=== PATIENT | female | born 1980 | race Caucasian/White ===

== ENCOUNTER → 2019-08-23 07:57 | Outpatient (CLI) | payer BC | END | disposition home or self-care (01) | LOC: D.RAD 07:57 → D.MRI 09:00 | PROVIDERS: ATTEND Orthopaedic Surgery | DX: S49.92XA Unspecified injury of left shoulder and upper arm, initial encounter (principal); X58.XXXA Exposure to other specified factors, initial encounter ==

== ENCOUNTER 2019-09-28 06:00 | Day surgery (SDC) | payer BC ==
[2019-09-26 09:05] LABS: HEMATOCRIT 41.8 % (36.0-48.0); HEMOGLOBIN 13.9 g/dL (12-16); MCH 29.6 pg (26.0-34.0); MCHC 33.3 g/dL (31.0-37.0); MCV 88.9 fL (80.0-100.0); MEAN PLATELET VOLUME 8.9 fL (7.4-10.4); RBC 4.7 10x6/uL (4.00-5.40); RDW 12.5 % (11.5-14.5); WBC 6.6 10x3/uL (4.8-10.8)
[~2019-09-28] VITALS: Ht 162.6 cm; Wt 83.9 kg
[2019-09-28 06:42] VITALS: BP 114/65; Ht 162.6 cm; Wt 83.9 kg
[2019-09-28 06:50] LABS: HCG URINE NEGATIVE (NEGATIVE)
[2019-09-28] MEDS ORDERED: HYDROCODON-ACE1 EA10 PO (08:27)
--- NOTE | 2019-09-28 10:21 | NUR ---
1000 IV D/C'D WITH CANNULA INTACT, PRESSURE HELD AND DRSG PLACED. DISCHARGE INSTRUCTION GIVEN AND PT VERBALIZED AN UNDERSTANDING. OPERATIVE ARM WITH CDI DRSG AND SLING ADJUSTED
--- NOTE | 2019-10-02 08:46 | OP ---
PATIENT NAME: SELVIN HERNÁNDEZ MEDICAL RECORD: [id number] :78 [facility] AD[facility]ION DATE: SURGEON: KENDELL CAMPOS MD DATE OF OPERATION: 09/28/2019 PREOPERATIVE DIAGNOSES: 1. Impingement syndrome of the left shoulder. 2. Superior labrum anterior and posterior lesion of the left shoulder. POSTOPERATIVE DIAGNOSIS: Impingement syndrome of the left shoulder. PROCEDURES: 1. Arthroscopic distal clavicle excision done through separate incision - 1 cm. 2. Arthroscopic subacromial decompression with acromioplasty and bursectomy. SURGEON: Kendell Campos MD ANESTHESIA: General. INTRAOPERATIVE COMPLICATIONS: None. SUMMARY OF PATHOLOGIC FINDINGS: The patient did not have a SLAP lesion. The patient did have moderate biceps tendonitis. I did not feel like the tendon needed to be transposed or resected because of the amount of impingement that was found. The patient did have a downward sloping acromion with excoriation of the coracoacromial ligament as well as some attritional changes of the rotator cuff and grade IV chondromalacia of the acromioclavicular joint. OPERATIVE SUMMARY IN DETAIL: After obtaining the appropriate preoperative orthopedic surgery consent as well as anesthetic consultation, evaluation and clearance, the patient was brought to the operating room and placed on the operating table in supine position. After adequate general laryngeal mask airway was administered, the patient was placed in a right lateral decubitus position. All pressure points were well padded to include down leg peroneal pad as well as axillary roll. The patient was held firmly to the operating table using the vacuum pack suction system. Left upper extremity and shoulder were then prepped and draped in routine sterile fashion. The arm was held in the Arthrex traction boom at 30 degrees of forward flexion, 30 degrees of abduction, 10 pounds of traction laterally. Arthroscopy was established in the glenohumeral joint from posterior portal. Anterior portal was established in the anterior safe interval. Diagnostic arthroscopy did show the above findings. Rotator cuff was intact. There was no chondromalacia in the glenohumeral joint region. There was no evidence of labral detachment. Having completed this, attention was turned to the subacromial space. While in the subacromial space, accessory lateral portal was created through which the surface tissue ablation system was utilized to denude the undersurface of the acromion of all soft tissue elements and release the coracoacromial ligament. A 5-0 barrel bur was then used to perform acromioplasty at the level of acromioclavicular joint and then attention was turned to the distal clavicle. Distal clavicle was excised through a separate arthroscopic portal for 1 cm. Having completed this, the residual bursa was taken down anterior and posterior as well as superiorly and laterally. Arthroscopy portal was then closed in routine interrupted fashion using 4-0 Prolene. Sterile dressings were applied. The patient was awakened and taken to recovery room in stable condition. All final needle and sponge counts were correct. OPERATIVE REPORT [id number] SELVIN HERNÁNDEZ ESDRAS TRANSINT:[id number] Voice Confirmation ID: [id number] DOCUMENT ID: [id number] ANDRES DOMINGUEZ, KENDELL HARDY at 0846 CC: [id number] DICTATION DATE: 09/28/19 0837 [employer]EM[employer]ER: 09/28/19 1116 [facility] 09/28/19 [id number] [place] [address]
== END 2019-09-28 10:15 | disposition home or self-care (01) ==
LOC: D.OPS 06:00
PROVIDERS: Anesthesiology; ATTEND Orthopaedic Surgery
DX: M75.42 Impingement syndrome of left shoulder (principal); S49.92XA Unspecified injury of left shoulder and upper arm, initial encounter; X58.XXXA Exposure to other specified factors, initial encounter; M25.512 Pain in left shoulder; I05.9 Rheumatic mitral valve disease, unspecified